=== PATIENT | female | born 1965 | race Caucasian/White ===

== ENCOUNTER 2018-04-12 15:11 | Emergency (ER) | payer OTHER ==
[2018-04-12] MEDS ORDERED: Ondansetron ODT TAB* 4 MG PO ONE (17:53)
[2018-04-12] MEDS ORDERED: Acetaminophen TAB* 325 MG PO ONE (17:53)
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
[2018-04-12] MEDS ORDERED: Cyclobenzaprine TAB* 10 MG PO ONE (19:29)
[2018-04-12 19:37] VITALS: BP 132/78
== END 2018-04-12 19:35 | disposition home or self-care (01) ==
LOC: ED 15:11
DX: R51 Headache (principal); Z88.0 Allergy status to penicillin; M25.562 Pain in left knee; M25.561 Pain in right knee; Z04.1 Encounter for examination and observation following transport accident
CPT/HCPCS: 72125; 99282; A9270-GY